=== PATIENT | male | born 1980 | race American Indian/Alaskan Native ===

== ENCOUNTER 2020-07-24 10:36 | Emergency (ER) | payer MEDICARE, MEDICAID ==
[2020-07-24 11:24] LABS: Bilirubin,Urine NEG (Negative); Blood,Urine MOD (Negative); Color,Urine Amber (Yellow); Mucus,Urine 3+ /HPF; Urobilinogen,Urine < 2.0 mg/dL (<2.0)
--- NOTE | 2020-07-24 11:31 | Event Note ---
ED Screening Note ED Screening Note: diarrhea that began 3 days ago +abd pain +headache no n/v generalized weakness no fever no SOB states he had a mild cough yesterday PMHx epilepsy was previously on depakote no allergies to meds +sick contacts traveled to [place] two weeks ago This initial assessment/diagnostic orders/clinical plan/treatment(s) is/are subject to change based on patients health status, clinical progression and re- assessment by fellow clinical providers in the ED. Further treatment and workup at subsequent clinical providers discretion. Patient/guardian urged not to elope from the ED as their condition may be serious if not clinically assessed and managed. Initial orders include: labs
[2020-07-24 12:11] LABS: Basophils % (Auto) 0.1 % (0.0-1.8); Hematocrit 47.3 % (35.5-45.6); Hemoglobin 15.5 gm/dl (11.8-15.2); Lymphocytes # (Auto) 0.6 K/mm3 (1.2-5.4); Lymphocytes % (Auto) 15.9 % (13.4-35.0); Mean Corpuscular HGB Conc 33 % (32-34); Mean Corpuscular Volume 91 fl (84-94); Monocytes # (Auto) 0.3 K/mm3 (0.0-0.8); Monocytes % (Auto) 8.2 % (0.0-7.3); Platelet Count 182 K/mm3 (140-440); Red Blood Count 5.19 M/mm3 (3.65-5.03); Red Cell Distribution Width 13.6 % (13.2-15.2)
[2020-07-24 12:24] LABS: Alanine Aminotransferase 14 units/L (7-56); Albumin 3.9 g/dL (3.9-5); BUN/Creatinine Ratio 14; Blood Urea Nitrogen 14 mg/dL (9-20); Calcium 9.5 mg/dL (8.4-10.2); Hemolysis Index 16
[2020-07-24] MEDS ORDERED: SODIUM CHLORIDE 0.9% 1000 ML 1,000 ML IV ONE ×2 (13:20→15:47)
--- NOTE | 2020-07-24 13:46 | Emergency Department Report ---
<SIMONE BAIRD - Last Filed: 07/24/20 17:27> ED N/V/D HPI - General Chief complaint: Abdominal Pain Stated complaint: ABD PAIN, HEADACHE Time Seen by Provider: 07/24/20 11:26 Source: patient Mode of arrival: Ambulatory Limitations: No Limitations - History of Present Illness Initial comments: The patient was evaluated in the emergency department for symptoms described in the history of present illness. He/she was evaluated in the context of the global COVID-19 pandemic, which necessitated consideration that the patient might be at risk for infection with the virus that causes COVID-19. Institutional protocols and algorithms that pertain to the evaluation of patients at risk for COVID-19 are in a state of rapid change based on information released by regulatory bodies including the CDC and federal and state organizations. These policies and algorithms were followed during the patient's care in the emergency department. Please note that these policies, procedures and recommendations changed on a rapid basis. 39-year-old -[place] male presents to the emergency room complaining of abdominal pains headache diarrhea and feeling weak x3 days. Patient does admit to a sick contact. Denies any fever or chills. Abdominal pain is located periumbilicus area. States that he was recently traveled from [place]. He reports that he is just achy all over. He is taking nothing for pain. He does have a past medical history of epilepsy and was on Keppra but no longer taking any medications and have outgrown this disease. Patient denies any known drug allergies. MD complaint: diarrhea, abdominal pain Onset/Timin -: days(s) Description of Diarrhea: water Associated Abdominal Pain: Yes Location: periumbillcal Radiation: none Severity: moderate Pain Scale: 5 Quality: aching Consistency: intermittent Improves with: none Context: sick contacts Associated Symptoms: headaches, weakness. denies: chest pain, cough, fever/chills - Related Data Previous Rx's Medication Instructions Recorded Last Taken Type Loperamide [Imodium] 2 mg PO Q2H PRN #15 capsule 07/24/20 Unknown Rx Allergies Allergy/AdvReac Type Severity Reaction Status Date / Time No Known Allergies Allergy Unverified 07/24/20 10:48 ED Review of Systems Comment: All other systems reviewed and negative ED Past Medical Hx - Past Medical History Hx Seizures: Yes (EPILECTIC) - Surgical History Past Surgical History?: No - Social History Smoking Status: Never Smoker Substance Use Type: None - Medications Home Medications: Home Medications Medication Instructions Recorded Confirmed Last Taken Type Loperamide [Imodium] 2 mg PO Q2H PRN #15 capsule 07/24/20 Unknown Rx ED Physical Exam - General Limitations: No Limitations General appearance: alert, in no apparent distress - Head Head exam: Present: atraumatic, normocephalic - Eye Eye exam: Present: normal appearance - ENT ENT exam: Present: mucous membranes dry - Neck Neck exam: Present: normal inspection, full ROM - Respiratory Respiratory exam: Present: normal lung sounds bilaterally. Absent: respiratory distress, chest wall tenderness - Cardiovascular Cardiovascular Exam: Present: tachycardia - GI/Abdominal GI/Abdominal exam: Present: soft, normal bowel sounds. Absent: distended, tenderness, guarding - Extremities Exam Extremities exam: Present: normal inspection, full ROM - Back Exam Back exam: Present: normal inspection, full ROM - Neurological Exam Neurological exam: Present: alert, oriented X3 - Psychiatric Psychiatric exam: Present: normal affect, normal mood - Skin Skin exam: Present: warm, dry, intact, normal color. Absent: rash ED Medical Decision Making - Lab Data Result diagrams: 07/24/20 11:15 07/24/20 11:15 - Medical Decision Making 39-year-old -[place] male presents to the emergency room complaining of abdominal pains headache diarrhea and feeling weak x3 days. Patient does admit to a sick contact. Denies any fever or chills. Abdominal pain is located periumbilicus area. States that he was recently traveled from [place]. He reports that he is just achy all over. He is taking nothing for pain. He does have a past medical history of epilepsy and was on Keppra but no longer taking any medications and have outgrown this disease. Patient denies any known drug allergies. CBC CMP lipase TSH urinalysis, magnesium, CK IV insertion normal saline, ibuprofen Spoke to Dr. Conner because patient has had 2 L of normal saline and still tachycardic at 114 blood pressure 112/76. Most likely due to Covid but we will order chest x-ray Imodium 2 mg for diarrhea orthostatic vital signs have been placed. Patient is being signed out to ANGELO Kimble. Did make a call to Dr. Henry he states that most likely the night hospitalist will have to evaluate for admission. ED Disposition Clinical Impression: Viral gastroenteritis Disposition: DC-01 TO HOME OR SELFCARE Is pt being admited?: No Does the pt Need Aspirin: No Condition: Stable Instructions: Viral Gastroenteritis, Adult Additional Instructions: Your symptoms appear most consistent with a nonspecific viral syndrome. However, given this current pandemic, COVID-19 is in the differential of possibilities. Despite your previous negative COVID-19 test, I do recommend repeat outpatient Covid 19 testing. In the meantime, isolate/quarantine yourself and stay away from anyone who is elderly, immunocompromised or c hronically ill. You can use ibuprofen every 6-8 hours and Tylenol every 4-8 hours, using the dosing on the back of the bottle, as needed for any fever or body aches. Return to the emergency department with any worsening of your symptoms, development of chest pain or shortness of breath, or with any acute distress. Try brat diet consisting of bread rice applesauce and toast. Be sure to increas e your water intake he can try taking Gatorade or Powerade. Follow-up with your primary care provider I have listed 1 below for your convenience. Prescriptions: Loperamide [Imodium] 2 mg PO Q2H PRN #15 capsule PRN Reason: diarrhea Referrals: PRIMARY CARE, [Primary Care Provider] - 3-5 Days [facility] [Provider Group] - 2-3 Days Forms: Work/School Release Form(ED) <NOAH KIMBLE - Last Filed: 07/24/20 22:24> ED Review of Systems ROS: Stated complaint: ABD PAIN, HEADACHE Other details as noted in HPI ED Course Vital Signs 07/24/20 07/24/20 07/24/20 10:51 15:41 17:08 Temperature 99.7 F H 99.1 F Pulse Rate 114 H 102 H 114 H Pulse Rate [ Lying] Pulse Rate [ Sitting] Pulse Rate [ Standing] Respiratory 16 18 18 Rate Blood Pressure 112/67 Blood Pressure 96/60 110/64 [Left] Blood Pressure [Lying] Blood Pressure [Right] Blood Pressure [Sitting] Blood Pressure [Standing] O2 Sat by Pulse 93 97 97 Oximetry 07/24/20 07/24/20 07/24/20 18:01 18:05 22:10 Temperature Pulse Rate 87 Pulse Rate [ 125 H Lying] Pulse Rate [ 129 H Sitting] Pulse Rate [ 143 H Standing] Respiratory 18 17 Rate Blood Pressure Blood Pressure 92/61 [Left] Blood Pressure 114/58 [Lying] Blood Pressure 105/59 [Right] Blood Pressure 105/52 [Sitting] Blood Pressure 98/50 [Standing] O2 Sat by Pulse Oximetry ED Medical Decision Making - Lab Data Result diagrams: 07/24/20 11:15 07/24/20 11:15 - Medical Decision Making Patient handed off to me by Chika Baird PA-C. Heart rate increased from 129 to 143 with sitting ~standing. 1 L of lactated ringer was ordered. Patient also given Imodium. Since Imodium, patient has had no further diarrheal bowel movements. No tenderness to palpation of his abdomen is noted on exam. Vitals repeated post fluids and Imodium. Ambulating pulse ox remains at 98 to 100% on room air. Ambulating heart rate remains 87-1 03. After 2 minutes of rest, heart rate is at 94. Repeat blood pressure noted to be 105/59. Patient denies any dizziness or lightheadedness. Patient is well-appearing. Discussed possible admission with [facility] midlevel hospitalist. Given normal heart rate and blood pressure within normal range, states it does not appear patient requires admission. Patient to discharge home with treatment for viral gastroenteritis. Patient to follow-up with primary care within 2 to 3 days. Strict return precautions were discussed in detail with patient who verbalizes understanding. Critical care attestation.: If time is entered above; I have spent that time in minutes in the direct care of this critically ill patient, excluding procedure time.
[2020-07-24] MEDS ORDERED: IBUPROFEN 600 MG TAB PO ONE (13:50)
[2020-07-24] MEDS ORDERED: POTASSIUM CHLORIDE ER 10 MEQ TAB PO ONE (14:20)
[2020-07-24] MEDS ORDERED: LOPERAMIDE 2 MG CAP PO ONE (17:28)
--- NOTE | 2020-07-24 17:45 | XRay Report ---
CHEST 2 VIEWS INDICATION / CLINICAL INFORMATION: tachy. COMPARISON: None available. FINDINGS: SUPPORT DEVICES: None. HEART / MEDIASTINUM: No significant abnormality. LUNGS / PLEURA: No significant pulmonary or pleural abnormality. No pneumothorax. ADDITIONAL FINDINGS: No significant additional findings. IMPRESSION: No significant abnormality Signer Name: Ben Holloway MD FACR Signed: 07/24/2020 5:40 PM Workstation Name: [id number]
[2020-07-24] MEDS ORDERED: LACTATED RINGERS 1,000 ML IV ONE (18:09)
[2020-07-24 22:11] VITALS: BP 92/61
== END 2020-07-24 22:30 | disposition home or self-care (01) ==
LOC: EDBD → ED 10:36
DX: A08.4 Viral intestinal infection, unspecified (principal); G40.909 Epilepsy, unspecified, not intractable, without status epilepticus; Z79.899 Other long term (current) drug therapy
CPT/HCPCS: 36415; 71046; 80053; 81001; 82550; 83690; 83735; 84443; 85025; 93005; 96360; 96361; 99284; J7030; J7120

== ENCOUNTER 2022-02-04 13:42 | Emergency (ER) | payer MEDICARE ==
[2022-02-04 14:50] VITALS: BP 106/75
== END 2022-02-05 04:28 | disposition left against medical advice (07) ==
LOC: ED 13:42
DX: R53.83 Other fatigue (principal); Z53.21 Procedure and treatment not carried out due to patient leaving prior to being seen by health care provider